=== PATIENT | female | born 1955 | race Caucasian/White ===

== ENCOUNTER 2017-04-16 14:48 | Observation (INO) | payer MEDICARE, OTHER ==
[~2017-04-16] VITALS: Ht 149.9 cm; Wt 51.4 kg
[2017-04-16] MEDS ORDERED: SODIUM CHLORIDE FLUSH 10ML SYR IVF ONE (15:00)
[2017-04-16] MEDS ORDERED: ASPIRIN 81 MG TABLET CHEW PO ONE (15:00)
[2017-04-16] MEDS ORDERED: NITROGLYCERIN SINGLE TAB 0.4 MG SL PRN (15:00)
[2017-04-16] MEDS ORDERED: ASPIRIN 81 MG TABLET CHEW ONE (15:07)
[2017-04-16] MEDS ORDERED: NITROGLYCERIN SINGLE TAB 0.4 MG SL ONE (15:07)
[2017-04-16 15:13] LABS: BASOPHILS # (AUTO) 0.05 x10^3/uL (0-0.1); BASOPHILS % (AUTO) 1 % (0-1); EOSINOPHILS # (AUTO) 0.16 x10^3/uL (0-0.4); EOSINOPHILS % (AUTO) 2 % (1-7); LYMPHOCYTES # (AUTO) 3.21 x10^3/uL (1-3.4); LYMPHOCYTES % (AUTO) 47 % (22-44); MD NO; MEAN CORPUSCULAR HEMOGLOBIN 30.9 pg (27.0-34.8); MEAN CORPUSCULAR HGB CONC 33.7 g/dL (32.4-35.8); MEAN CORPUSCULAR VOLUME 91.5 fL (80-100); MEAN PLATELET VOLUME 7.8 fL (7.4-10.4); MONOCYTES # (AUTO) 0.39 x10^3/uL (0.2-0.8); MONOCYTES % (AUTO) 6 % (2-9); NEUTROPHILS # (AUTO) 2.97 x10^3/uL (1.8-6.8); NEUTROPHILS % (AUTO) 44 % (42-75); PLATELET COUNT 312 x10^3/uL (130-400); RED BLOOD COUNT 4.32 x10^6/uL (3.82-5.3); RED CELL DISTRIBUTION WIDTH 13.6 % (9.6-15.2)
[2017-04-16 15:22] LABS: INTERNATIONAL NORMALIZED RATIO 1.01 (0.93-1.1); PROTHROMBIN TIME 10.4 Seconds (9.6-11.5)
[2017-04-16 15:35] LABS: ALANINE AMINOTRANSFERASE 16 U/L (12-78); ALBUMIN 3.9 g/dL (3.4-5.0); ANION GAP 10 mmol/L (5-15); CALCIUM 8.6 mg/dL (8.5-10.1); CHLORIDE 96 mmol/L (98-107); CREATININE 1.45 mg/dL (0.55-1.02)
[2017-04-16 15:39] LABS: ALKALINE PHOSPHATASE 87 U/L (45-117); BILIRUBIN,TOTAL 0.7 mg/dL (0.2-1.0); TOTAL PROTEIN 7.9 g/dL (6.4-8.2)
[2017-04-16] MEDS ORDERED: POTASSIUM CHLORIDE 40 MEQ in SODIUM CHLORIDE 0.9% 1,000 ML IV ONE (16:40)
[2017-04-16] MEDS ORDERED: POTASSIUM CHLORIDE 20 MEQ TAB.ER.PRT ONE (16:43)
[2017-04-16] MEDS ORDERED: ACETAMINOPHEN 500 MG TABLET ONE (16:43)
[2017-04-16] MEDS ORDERED: NS + 40MEQ KCL 1,000 ML IV ONE (16:43)
[2017-04-16] MEDS ORDERED: POTASSIUM CHLORIDE 20 MEQ TAB.ER.PRT PO ONE (17:00)
[2017-04-16] MEDS ORDERED: SODIUM CHLORIDE FLUSH 10ML SYR IVF PRN (17:00)
[2017-04-16] MEDS ORDERED: ACETAMINOPHEN 500 MG TABLET PO ONE (17:00)
[2017-04-16] MEDS ORDERED: HYDR200T PO (17:08)
[2017-04-16] MEDS ORDERED: EZET10TA18 PO (17:08)
[2017-04-16] MEDS ORDERED: NITR0.4T28 SL (17:08)
[2017-04-16] MEDS ORDERED: METO50TA82 PO (17:08)
[2017-04-16] MEDS ORDERED: LORA1TAB PO (17:08)
[2017-04-16] MEDS ORDERED: TIOT18CA INH (17:08)
[2017-04-16] MEDS ORDERED: FURO20TA3 PO (17:08)
[2017-04-16] MEDS ORDERED: HYDR-3245 PO (17:08)
[2017-04-16] MEDS ORDERED: CHOL500050 PO (17:08)
[2017-04-16] MEDS ORDERED: ESTR1TAB15 PO (17:08)
[2017-04-16] MEDS ORDERED: SOTA80TA PO (17:08)
[2017-04-16] MEDS ORDERED: POLY119P4 PO (17:08)
[2017-04-16] MEDS ORDERED: PANT40TA5 PO (17:08)
[2017-04-16] MEDS ORDERED: DULO60CA7 PO (17:08)
[2017-04-16] MEDS ORDERED: CYCL-259 PO (17:08)
[2017-04-16] MEDS ORDERED: QUET150T PO (17:08)
[2017-04-16] MEDS ORDERED: GABA600T2 PO (17:08)
[2017-04-16] MEDS ORDERED: LEVO125T5 PO (17:08)
[2017-04-16] MEDS ORDERED: NORT10CA PO (17:08)
[2017-04-16] MEDS ORDERED: BUPR1PAT6 TD (17:08)
[2017-04-16] MEDS ORDERED: ALBU8.5H8 INH (17:08)
[2017-04-16] MEDS ORDERED: DICY10CA3 PO (17:08)
[2017-04-16] MEDS ORDERED: ZOLP-413 PO (17:08)
[2017-04-16] MEDS ORDERED: PROM12.55 PO (17:08)
[2017-04-16] MEDS ORDERED: WARFARIN 2 MG TABLET PO-COUM SCH (18:00)
[2017-04-16] MEDS ORDERED: NITROGLYCERIN 0.4 MG BOTTLE (25 TABS) SL PRN (18:00)
[2017-04-16] MEDS ORDERED: hydrALAzine 20 MG/ML, 1ML IVPush PRN (18:00)
[2017-04-16] MEDS ORDERED: ACETAMINOPHEN 325 MG TABLET PO PRN (18:00)
[2017-04-16] MEDS ORDERED: PROMETHAZINE 25MG TABLET PO PRN (18:00)
[2017-04-16] MEDS ORDERED: BISACODYL 10 MG SUPP PR PRN (18:00)
[2017-04-16] MEDS ORDERED: ONDANSETRON 2MG/ML, 2ML IVPush PRN (18:00)
[2017-04-16] MEDS ORDERED: ONDANSETRON ODT 4 MG PO PRN (18:00)
[2017-04-16 18:18] LABS: FREE T4 (FREE THYROXINE) 1.55 ng/dL (0.76-1.46); TROPONIN I < 0.015 ng/mL (0.000-0.045)
[2017-04-16 18:24] LABS: THYROID STIMULATING HORMONE 0.055 mIU/L (0.358-3.740)
[2017-04-16] MEDS ORDERED: HYDROcodone/APAP 10/325 MG TABLET ONE (18:28)
[2017-04-16] MEDS: HYDROcodone/APAP 10/325 MG TABLET PO SCH ×2 (18:29→22:48)
[2017-04-16] MEDS ORDERED: WARFARIN 7.5 MG TABLET PO-COUM ONE (18:30)
[2017-04-16] MEDS ORDERED: ALBUTEROL/IPRATROPIUM 2.5MG/0.5MG, 3 ML ONE (19:32)
[2017-04-16] MEDS: ALBUTEROL/IPRATROPIUM 2.5MG/0.5MG, 3 ML NPPB SCH (19:35)
[2017-04-16 19:52] VITALS: BP 90/56
[2017-04-16 20:21] VITALS: BP 102/60
[2017-04-16] MEDS: NORTRIPTYLINE 10 MG CAPSULE PO SCH (20:34)
[2017-04-16] MEDS: GABAPENTIN 300 MG CAPSULE PO SCH (20:34)
[2017-04-16] MEDS: METOPROLOL TARTRATE 50 MG TABLET PO SCH (20:35)
[2017-04-16] MEDS: TEMAZEPAM 15 MG CAPSULE PO PRN (20:35)
[2017-04-16] MEDS: ESTRADIOL 1 MG TABLET PO SCH (20:35)
[2017-04-16] MEDS: CYCLOBENZAPRINE 10 MG TABLET PO PRN (20:35)
[2017-04-16] MEDS: FUROSEMIDE 40 MG TABLET PO SCH ×2 (20:39→23:25)
[2017-04-16] MEDS: ZOLPIDEM 10MG TABLET PO SCH (20:39)
[2017-04-16] MEDS: SOTALOL 80MG TABLET PO SCH (20:39)
[2017-04-16] MEDS: NICOTINE 21 MG/24 HR PATCH.TD24 TD SCH (22:48)
[2017-04-16] MEDS: SODIUM CHLORIDE 0.9% 1,000 ML IV SCH (22:48)
[2017-04-17] VITALS (9 sets, daily range): BP systolic 91–151; BP diastolic 54–85
[2017-04-17 00:43] LABS: TROPONIN I < 0.015 ng/mL (0.000-0.045)
[2017-04-17 02:31] LABS: MICROSCOPIC NOT IND
[2017-04-17] MEDS: ASPIRIN 325 MG TABLET EC PO SCH (05:25)
[2017-04-17 07:00] LABS: MEAN CORPUSCULAR HGB CONC 33.4 g/dL (32.4-35.8); MEAN CORPUSCULAR VOLUME 92.9 fL (80-100); PLATELET COUNT 274 x10^3/uL (130-400); RED BLOOD COUNT 4.02 x10^6/uL (3.82-5.3); RED CELL DISTRIBUTION WIDTH 14.1 % (9.6-15.2)
[2017-04-17 07:08] LABS: ANION GAP 6 mmol/L (5-15); CALCIUM 8.3 mg/dL (8.5-10.1); CHLORIDE 106 mmol/L (98-107); CREATININE 1.13 mg/dL (0.55-1.02)
[2017-04-17 07:54] LABS: BASOPHILS # (AUTO) 0.04 x10^3/uL (0-0.1); BASOPHILS % (AUTO) 1 % (0-1); EOSINOPHILS # (AUTO) 0.21 x10^3/uL (0-0.4); EOSINOPHILS % (AUTO) 4 % (1-7); LYMPHOCYTES # (AUTO) 3.29 x10^3/uL (1-3.4); LYMPHOCYTES % (AUTO) 57 % (22-44); MD SCAN; MONOCYTES # (AUTO) 0.39 x10^3/uL (0.2-0.8); MONOCYTES % (AUTO) 7 % (2-9); NEUTROPHILS # (AUTO) 1.81 x10^3/uL (1.8-6.8); NEUTROPHILS % (AUTO) 32 % (42-75)
[2017-04-17 07:59] LABS: PROTHROMBIN TIME 10.3 Seconds (9.6-11.5)
[2017-04-17] MEDS: (Tiotropium Bromide** (Spiriva**) 18 MCG) INH SCH (09:00)
[2017-04-17] MEDS: FAMOTIDINE 20 MG TABLET PO SCH (09:00)
[2017-04-17] MEDS: HYDROcodone/APAP 10/325 MG TABLET PO SCH (09:05)
[2017-04-17] MEDS ORDERED: REGADENOSON 0.4 MG/5 ML SYRINGE ONE (09:39)
[2017-04-17] MEDS: ALBUTEROL/IPRATROPIUM 2.5MG/0.5MG, 3 ML NPPB SCH ×2 (10:10→21:00)
[2017-04-17] MEDS: ESTRADIOL 1 MG TABLET PO SCH ×2 (11:11→20:57)
[2017-04-17] MEDS: PANTOPROZOLE 40MG TABLET PO SCH (11:11)
[2017-04-17] MEDS: HYDROXYCHLOROQUINE 200 MG TABLET PO SCH (11:11)
[2017-04-17] MEDS: LEVOTHYROXINE 125 MCG TABLET PO SCH (11:12)
[2017-04-17] MEDS: GABAPENTIN 300 MG CAPSULE PO SCH ×2 (11:12→20:57)
[2017-04-17] MEDS: EZETIMIBE 10 MG TABLET PO SCH (11:14)
[2017-04-17] MEDS: SOTALOL 80MG TABLET PO SCH ×2 (11:14→21:00)
[2017-04-17] MEDS: FUROSEMIDE 40 MG TABLET PO SCH ×2 (11:14→21:07)
[2017-04-17] MEDS: DULOXETINE 30 MG CAPSULE.DR PO SCH (11:14)
[2017-04-17] MEDS: METOPROLOL TARTRATE 50 MG TABLET PO SCH ×3 (11:14→20:59)
[2017-04-17] MEDS: DICYCLOMINE 10 MG CAPSULE PO SCH (11:17)
[2017-04-17] MEDS: CYCLOBENZAPRINE 10 MG TABLET PO PRN (11:22)
[2017-04-17] MEDS ORDERED: HYDROcodone/APAP 10/325 MG TABLET ONE (11:50)
[2017-04-17] MEDS: HYDROcodone/APAP 10/325 MG TABLET PO PRN ×2 (11:52→20:59)
[2017-04-17] MEDS: WARFARIN MODERAT DOSE PROTOCOL XX SCH (12:00)
[2017-04-17] MEDS: SODIUM CHLORIDE 0.9% 1,000 ML IV SCH (13:06)
[2017-04-17] MEDS ORDERED: ERGOCALCIFEROL 50,000 UNIT CAPSULE PO SCH (18:00)
[2017-04-17] MEDS ORDERED: WARFARIN 7.5 MG TABLET PO-COUM ONE (18:00)
[2017-04-17] MEDS: NORTRIPTYLINE 10 MG CAPSULE PO SCH (20:57)
[2017-04-17] MEDS: NICOTINE 21 MG/24 HR PATCH.TD24 TD SCH (20:58)
[2017-04-17] MEDS: ZOLPIDEM 10MG TABLET PO SCH (21:00)
[2017-04-17] MEDS: TEMAZEPAM 15 MG CAPSULE PO PRN (23:24)
[2017-04-18 00:43] VITALS: BP 91/56
[2017-04-18] MEDS: SODIUM CHLORIDE 0.9% 1,000 ML IV SCH (02:35)
[2017-04-18] MEDS: HYDROcodone/APAP 10/325 MG TABLET PO PRN ×3 (06:27→17:31)
[2017-04-18] MEDS: ASPIRIN 325 MG TABLET EC PO SCH (06:27)
[2017-04-18 06:33] LABS: BASOPHILS # (AUTO) 0.06 x10^3/uL (0-0.1); BASOPHILS % (AUTO) 1 % (0-1); EOSINOPHILS # (AUTO) 0.23 x10^3/uL (0-0.4); EOSINOPHILS % (AUTO) 3 % (1-7); LYMPHOCYTES # (AUTO) 3.72 x10^3/uL (1-3.4); LYMPHOCYTES % (AUTO) 46 % (22-44); MD NO; MEAN CORPUSCULAR HEMOGLOBIN 30.9 pg (27.0-34.8); MEAN CORPUSCULAR HGB CONC 33.6 g/dL (32.4-35.8); MEAN CORPUSCULAR VOLUME 92.2 fL (80-100); MEAN PLATELET VOLUME 8.4 fL (7.4-10.4); MONOCYTES # (AUTO) 0.67 x10^3/uL (0.2-0.8); MONOCYTES % (AUTO) 8 % (2-9); NEUTROPHILS # (AUTO) 3.51 x10^3/uL (1.8-6.8); NEUTROPHILS % (AUTO) 43 % (42-75); PLATELET COUNT 267 x10^3/uL (130-400); RED BLOOD COUNT 4.08 x10^6/uL (3.82-5.3); RED CELL DISTRIBUTION WIDTH 14.1 % (9.6-15.2)
[2017-04-18 06:44] LABS: ANION GAP 7 mmol/L (5-15); CALCIUM 8.3 mg/dL (8.5-10.1); CHLORIDE 103 mmol/L (98-107); CREATININE 0.97 mg/dL (0.55-1.02)
[2017-04-18 07:01] LABS: INTERNATIONAL NORMALIZED RATIO 1.43 (0.93-1.1); PROTHROMBIN TIME 14.6 Seconds (9.6-11.5)
[2017-04-18] MEDS: ALBUTEROL/IPRATROPIUM 2.5MG/0.5MG, 3 ML NPPB SCH (07:32)
[2017-04-18 08:24] VITALS: BP 162/85
[2017-04-18] MEDS: EZETIMIBE 10 MG TABLET PO SCH (08:39)
[2017-04-18] MEDS: CYCLOBENZAPRINE 10 MG TABLET PO PRN (08:39)
[2017-04-18] MEDS: METOPROLOL TARTRATE 50 MG TABLET PO SCH ×2 (08:39→16:18)
[2017-04-18] MEDS: FUROSEMIDE 40 MG TABLET PO SCH (08:39)
[2017-04-18] MEDS: ESTRADIOL 1 MG TABLET PO SCH (08:39)
[2017-04-18] MEDS: FAMOTIDINE 20 MG TABLET PO SCH (08:40)
[2017-04-18] MEDS: HYDROXYCHLOROQUINE 200 MG TABLET PO SCH (08:40)
[2017-04-18] MEDS: GABAPENTIN 300 MG CAPSULE PO SCH (08:40)
[2017-04-18] MEDS: DICYCLOMINE 10 MG CAPSULE PO SCH (08:40)
[2017-04-18] MEDS: (Tiotropium Bromide** (Spiriva**) 18 MCG) INH SCH (08:42)
[2017-04-18 11:45] VITALS: BP 130/90
[2017-04-18] MEDS: WARFARIN MODERAT DOSE PROTOCOL XX SCH (11:52)
[2017-04-18] MEDS: PANTOPROZOLE 40MG TABLET PO SCH (11:56)
[2017-04-18] MEDS: LEVOTHYROXINE 125 MCG TABLET PO SCH (11:56)
[2017-04-18] MEDS: SOTALOL 80MG TABLET PO SCH (11:56)
[2017-04-18] MEDS: DULOXETINE 30 MG CAPSULE.DR PO SCH (11:57)
[2017-04-18] MEDS ORDERED: ASPI-621 PO (15:40)
[2017-04-18] MEDS ORDERED: WARF5TAB PO (15:40)
[2017-04-18] MEDS ORDERED: LEVO125T5 PO (15:40)
[2017-04-18] MEDS ORDERED: POTASSIUM CHLORIDE 20 MEQ TAB.ER.PRT PO ONE (16:00)
[2017-04-18 16:17] VITALS: BP 116/77
[2017-04-18] MEDS ORDERED: WARFARIN 5 MG TABLET PO-COUM ONE (18:00)
[2017-04-18] MEDS ORDERED: PNEUMOCOCCAL 23 VACCINE IM-VACC ONE (19:00)
[2017-04-18] MEDS ORDERED: FLU VACC QS2017-18 (36MOS+) UP/PF 0.5 ML IM-VACC ONE (19:00)
== END 2017-04-18 19:00 | disposition home or self-care (01) ==
LOC: ED 16:36 → EDIP 16:37 → INTOOBSV 16:37 → ED 16:51 → 5SO 18:02
PROVIDERS: ADMIT Internal Medicine; ATTEND Internal Medicine
DX: R07.2 Precordial pain (principal); E87.6 Hypokalemia; E03.9 Hypothyroidism, unspecified; I25.110 Atherosclerotic heart disease of native coronary artery with unstable angina pectoris; I10 Essential (primary) hypertension; K21.9 Gastro-esophageal reflux disease without esophagitis; M35.00 Sjogren syndrome, unspecified; J44.9 Chronic obstructive pulmonary disease, unspecified; I48.91 Unspecified atrial fibrillation; F17.210 Nicotine dependence, cigarettes, uncomplicated; E78.5 Hyperlipidemia, unspecified; E78.00 Pure hypercholesterolemia, unspecified; Z86.711 Personal history of pulmonary embolism; Z83.3 Family history of diabetes mellitus; Z82.49 Family history of ischemic heart disease and other diseases of the circulatory system
CPT/HCPCS: 36415; 71045; 76770; 78452; 80048; 80053; 81003; 83880; 84439; 84443; 84484; 85025; 85610; 85730; 93005; 93017; 94640; 96361; 96365; 96366; 96375; 99285; A9502; C9898; G0378; J2405; J2785; J3480; J7030; J7620

== ENCOUNTER 2017-04-22 22:32 | Emergency (ER) | payer OTHER ==
[~2017-04-22] VITALS: Ht 162.6 cm; Wt 75.0 kg
[~2017-04-22 22:32] MED LIST: ALBU8.5H8 INH; ASPI-621 PO; BUPR1PAT6 TD; CHOL500050 PO; CYCL-259 PO; DICY10CA3 PO; DULO60CA7 PO; ESTR1TAB15 PO; EZET10TA18 PO; FURO20TA3 PO; GABA600T2 PO; HYDR-3245 PO; HYDR200T PO; LEVO125T5 PO; LORA1TAB PO; METO50TA82 PO; NITR0.4T28 SL; NORT10CA PO; PANT40TA5 PO; POLY119P4 PO; PROM12.55 PO; QUET150T PO; SOTA80TA PO; TIOT18CA INH; WARF5TAB PO; ZOLP-413 PO
[2017-04-22 22:40] VITALS: BP 120/62
[2017-04-22] MEDS ORDERED: HYDROcodone/APAP 5/325 TABLET PO ONE (23:00)
[2017-04-22 23:11] LABS: BASOPHILS # (AUTO) 0.09 x10^3/uL (0-0.1); BASOPHILS % (AUTO) 1 % (0-1); EOSINOPHILS # (AUTO) 0.35 x10^3/uL (0-0.4); EOSINOPHILS % (AUTO) 4 % (1-7); LYMPHOCYTES # (AUTO) 4.31 x10^3/uL (1-3.4); LYMPHOCYTES % (AUTO) 48 % (22-44); MD NO; MEAN CORPUSCULAR HEMOGLOBIN 31.2 pg (27.0-34.8); MEAN CORPUSCULAR HGB CONC 34.2 g/dL (32.4-35.8); MEAN CORPUSCULAR VOLUME 91.3 fL (80-100); MEAN PLATELET VOLUME 8.1 fL (7.4-10.4); MONOCYTES # (AUTO) 0.72 x10^3/uL (0.2-0.8); MONOCYTES % (AUTO) 8 % (2-9); NEUTROPHILS # (AUTO) 3.59 x10^3/uL (1.8-6.8); NEUTROPHILS % (AUTO) 40 % (42-75); PLATELET COUNT 289 x10^3/uL (130-400); RED BLOOD COUNT 4.37 x10^6/uL (3.82-5.3); RED CELL DISTRIBUTION WIDTH 13.6 % (9.6-15.2)
[2017-04-22 23:22] LABS: ALANINE AMINOTRANSFERASE 22 U/L (12-78); ALBUMIN 3.7 g/dL (3.4-5.0); ANION GAP 9 mmol/L (5-15); CHLORIDE 97 mmol/L (98-107); CREATININE 1.39 mg/dL (0.55-1.02)
[2017-04-22 23:27] LABS: ALKALINE PHOSPHATASE 85 U/L (45-117); BILIRUBIN,TOTAL 0.4 mg/dL (0.2-1.0); TOTAL PROTEIN 7.4 g/dL (6.4-8.2); TROPONIN I < 0.015 ng/mL (0.000-0.045)
[2017-04-22] MEDS ORDERED: POTASSIUM CHLORIDE 20 MEQ TAB.ER.PRT PO ONE (23:30)
[2017-04-22] MEDS ORDERED: SODIUM CHLORIDE 0.9% 1,000ML IVBOLUS ONE (23:30)
[2017-04-22] MEDS ORDERED: SODIUM CHLORIDE FLUSH 10ML SYR IVF ONE (23:30)
[2017-04-22] MEDS ORDERED: POTASSIUM CHLORIDE 20 MEQ TAB.ER.PRT ONE ×2 (23:33→23:47)
[2017-04-22] MEDS ORDERED: HYDROcodone/APAP 5/325 TABLET ONE (23:33)
[2017-04-23] MEDS ORDERED: MAGNESIUM SULFATE PMX 2GM/50ML 50 ML IV ONE (00:30)
[2017-04-23 00:44] LABS: MICROSCOPIC NOT IND
[2017-04-23 00:52] LABS: CULTURE INDICATED? NO
[2017-04-23] MEDS ORDERED: POTASSIUM CHLORIDE 20 MEQ PACKET ONE (01:23)
[2017-04-23] MEDS ORDERED: POTASSIUM CHLORIDE 10% 40 MEQ/30 ML UDC PO ONE (01:30)
== END 2017-04-23 02:29 | disposition home or self-care (01) ==
LOC: ED 23:59
DX: R07.2 Precordial pain (principal); E87.6 Hypokalemia; E83.42 Hypomagnesemia; I10 Essential (primary) hypertension; M54.5 Low back pain; K21.9 Gastro-esophageal reflux disease without esophagitis; I48.91 Unspecified atrial fibrillation; E78.00 Pure hypercholesterolemia, unspecified; F17.200 Nicotine dependence, unspecified, uncomplicated; J44.9 Chronic obstructive pulmonary disease, unspecified
CPT/HCPCS: 36415; 71045; 80053; 81003; 83690; 83735; 84484; 85025; 93005; 96361; 96365; 99285; J3475; J7030

== ENCOUNTER → 2017-09-14 | Outpatient (CLI) | payer OTHER ==
[~2017-09-14] MED LIST changes: -HYDR200T PO; +HYDR200T72 PO
== END | disposition home or self-care (01) ==
LOC: CARD 12:55
PROVIDERS: ATTEND Psychiatry & Neurology Neurology
DX: G40.909 Epilepsy, unspecified, not intractable, without status epilepticus (principal)
CPT/HCPCS: 95819

== ENCOUNTER → 2017-09-28 | Outpatient (CLI) | payer OTHER | END | disposition home or self-care (01) | LOC: CFH 12:55 | DX: Z12.31 Encounter for screening mammogram for malignant neoplasm of breast (principal); Z13.820 Encounter for screening for osteoporosis; M85.88 Other specified disorders of bone density and structure, other site; N95.9 Unspecified menopausal and perimenopausal disorder | CPT/HCPCS: 77080; 77067 ==

== ENCOUNTER → 2018-01-22 | Outpatient (CLI) | payer OTHER ==
[~2018-01-22] MED LIST changes: -ASPI-621 PO; +ASPI81TA45 PO
== END | disposition home or self-care (01) ==
LOC: CVU 11:23
PROVIDERS: ATTEND Internal Medicine Cardiovascular Disease
DX: I34.0 Nonrheumatic mitral (valve) insufficiency (principal); I10 Essential (primary) hypertension; E78.5 Hyperlipidemia, unspecified; I34.1 Nonrheumatic mitral (valve) prolapse; Z87.891 Personal history of nicotine dependence
CPT/HCPCS: 93306

== ENCOUNTER 2019-09-29 14:12 | Outpatient (CLI) | payer MEDICARE ==
[~2019-09-29 14:12] MED LIST changes: -EZET10TA18 PO; +EZET10TA70 PO; -GABA600T2 PO; +GABA600T7 PO; -PROM12.55 PO; +PROM12.57 PO; -QUET150T PO; +QUET150T2 PO; -WARF5TAB PO; +WARF5TAB2 PO
[2019-09-29 15:56] LABS: BASOPHILS # (AUTO) 0.02 x10^3/uL (0-0.1); BASOPHILS % (AUTO) 0 % (0-1); EOSINOPHILS # (AUTO) 0.17 x10^3/uL (0-0.4); EOSINOPHILS % (AUTO) 3 % (1-7); LYMPHOCYTES # (AUTO) 2.22 x10^3/uL (1-3.4); LYMPHOCYTES % (AUTO) 38 % (22-44); MD NO; MEAN CORPUSCULAR HEMOGLOBIN 31.5 pg (27.0-34.8); MEAN CORPUSCULAR HGB CONC 33.3 g/dL (32.4-35.8); MEAN CORPUSCULAR VOLUME 94.5 fL (80-100); MEAN PLATELET VOLUME 8.3 fL (7.4-10.4); MONOCYTES # (AUTO) 0.34 x10^3/uL (0.2-0.8); MONOCYTES % (AUTO) 6 % (2-9); NEUTROPHILS # (AUTO) 3.16 x10^3/uL (1.8-6.8); NEUTROPHILS % (AUTO) 53 % (42-75); PLATELET COUNT 249 x10^3/uL (130-400); RED BLOOD COUNT 3.94 x10^6/uL (3.82-5.3); RED CELL DISTRIBUTION WIDTH 13.1 % (9.6-15.2)
[2019-09-29 16:09] LABS: ALANINE AMINOTRANSFERASE 18 U/L (12-78); ALBUMIN 4.1 g/dL (3.4-5.0); ANION GAP 5 mmol/L (5-15); CALCIUM 8.7 mg/dL (8.5-10.1); CHLORIDE 112 mmol/L (98-107); CHOLESTEROL, TOTAL 223 mg/dL (140-239); CREATININE 0.96 mg/dL (0.55-1.02)
[2019-09-29 16:19] LABS: ALKALINE PHOSPHATASE 106 U/L (45-117); BILIRUBIN,TOTAL 0.3 mg/dL (0.2-1.0); CHOL/HDL RATIO 3.3; HDL CHOL % 30 % (28-40); HDL CHOLESTEROL (DIRECT) 67 mg/dL (40-60); LDL CHOLESTEROL,CALCULATED 128 mg/dL (54-169); LDL/HDL RATIO 1.9 (0.5-3.0); TOTAL PROTEIN 7.3 g/dL (6.4-8.2); TRIGLYCERIDES 141 mg/dL (50-200); VLDL CHOLESTEROL 28 mg/dL (0-25)
== END 2019-09-29 23:59 | disposition home or self-care (01) ==
LOC: CARD 14:12
PROVIDERS: ATTEND Internal Medicine
DX: R05 Cough (principal); M25.521 Pain in right elbow; M25.522 Pain in left elbow; E03.8 Other specified hypothyroidism; I10 Essential (primary) hypertension; E78.5 Hyperlipidemia, unspecified
CPT/HCPCS: 36415; 71046; 80053; 80061; 83036; 84443; 85025; 94060; 94726; 94729

== ENCOUNTER → 2020-02-02 | Outpatient (CLI) | payer MEDICARE ==
[~2020-02-02] MED LIST changes: -PANT40TA5 PO; +PANT40TA6 PO
== END | disposition home or self-care (01) ==
LOC: LAB 15:41
PROVIDERS: ATTEND Registered Nurse
DX: E55.9 Vitamin D deficiency, unspecified (principal); R76.8 Other specified abnormal immunological findings in serum; M35.00 Sjogren syndrome, unspecified
CPT/HCPCS: 36415; 82306; 86160; 86225; 86235

== ENCOUNTER → 2020-07-21 | Outpatient (CLI) | payer MEDICARE ==
[~2020-07-21] MED LIST changes: -CYCL-259 PO; +CYCL10TA2 PO; -HYDR-3245 PO; +HYDR1TAB53 PO
== END | disposition home or self-care (01) ==
LOC: CFH 14:45
PROVIDERS: ATTEND Student in an Organized Health Care Education/Training Program
DX: Z12.31 Encounter for screening mammogram for malignant neoplasm of breast (principal); Z12.2 Encounter for screening for malignant neoplasm of respiratory organs; J98.4 Other disorders of lung; M95.4 Acquired deformity of chest and rib; I25.10 Atherosclerotic heart disease of native coronary artery without angina pectoris; R91.8 Other nonspecific abnormal finding of lung field; Z87.891 Personal history of nicotine dependence
CPT/HCPCS: 71271; 77063; 77067

== ENCOUNTER → 2020-08-03 | Outpatient (CLI) | payer MEDICARE ==
[2020-08-03 16:27] LABS: BASOPHILS % (AUTO) 1 % (0-1); EOSINOPHILS % (AUTO) 2 % (1-7); LYMPHOCYTES % (AUTO) 40 % (22-44); MEAN CORPUSCULAR HGB CONC 33.5 g/dL (32.4-35.8); MEAN PLATELET VOLUME 8.5 fL (7.4-10.4); MONOCYTES % (AUTO) 7 % (2-9); NEUTROPHILS % (AUTO) 50 % (42-75); PLATELET COUNT 244 x10^3/uL (130-400); RED CELL DISTRIBUTION WIDTH 12.8 % (9.6-15.2)
[2020-08-03 16:38] LABS: ALANINE AMINOTRANSFERASE 22 U/L (12-78); ANION GAP 6 mmol/L (5-15); CALCIUM 8.7 mg/dL (8.5-10.1); CHLORIDE 112 mmol/L (98-107); CHOLESTEROL, TOTAL 245 mg/dL (140-239); CREATININE 0.83 mg/dL (0.55-1.02)
[2020-08-03 16:48] LABS: ALKALINE PHOSPHATASE 98 U/L (45-117); BILIRUBIN,TOTAL 0.3 mg/dL (0.2-1.0); CHOL/HDL RATIO 4.3; HDL CHOL % 23 % (28-40); HDL CHOLESTEROL (DIRECT) 57 mg/dL (40-60); LDL CHOLESTEROL,CALCULATED 151 mg/dL (54-169); LDL/HDL RATIO 2.6 (0.5-3.0); TOTAL PROTEIN 7.1 g/dL (6.4-8.2); TRIGLYCERIDES 183 mg/dL (50-200); VLDL CHOLESTEROL 37 mg/dL (0-25)
== END | disposition home or self-care (01) ==
LOC: LAB 15:49
PROVIDERS: ATTEND Student in an Organized Health Care Education/Training Program
DX: I10 Essential (primary) hypertension (principal); E78.5 Hyperlipidemia, unspecified; Z86.39 Personal history of other endocrine, nutritional and metabolic disease
CPT/HCPCS: 36415; 80053; 80061; 83036; 84443; 85025

== ENCOUNTER 2020-10-07 16:20 | Outpatient (CLI) | payer MEDICARE | END 2020-10-07 23:59 | disposition home or self-care (01) | LOC: CFH 16:20 | PROVIDERS: ATTEND Orthopaedic Surgery | DX: M50.13 Cervical disc disorder with radiculopathy, cervicothoracic region (principal); M48.02 Spinal stenosis, cervical region | CPT/HCPCS: 72141 ==

== ENCOUNTER 2020-10-14 14:16 | Outpatient (CLI) | payer MEDICARE | END 2020-10-14 23:59 | disposition home or self-care (01) | LOC: CFH 14:16 | PROVIDERS: ATTEND Orthopaedic Surgery | DX: Z02.9 Encounter for administrative examinations, unspecified (principal) ==